=== PATIENT | female | born 2000 | race Caucasian/White ===

== ENCOUNTER 2021-02-05 18:14 | Emergency (ER) | payer OTHER ==
[~2021-02-05] VITALS: Ht 152.4 cm; Wt 47.7 kg
--- NOTE | 2021-02-05 18:48 | ED Integumentary General ---
General Chief Complaint: Bite-Animal/Human/Insect Stated Complaint: INSECT BITE/REDNESS/PAIN Nursing Triage Note: AMB TO ROOM REPORTS APX 1800 WAS BITTEN ON L FOREARM AREA RED WITH WELT LOOKING AREA. DID NOT TRY OTC MEDS. Source: patient Exam Limitations: no limitations History of Present Illness Date Seen by Provider: Feb 05, 2021 Time Seen by Provider: 18:46 Initial Comments To ER with an insect bite to the left forearm. She had picked up her jacket and felt something bite her. She now has redness and a bump to that area. Timing/Duration: just prior to arrival Severity: mild Possible Cause: no cause identified Associated Symptoms: denies symptoms Allergies and Home Medications Patient Home Medication List Home Medication List Reviewed: Yes Review of Systems Review of Systems Constitutional: see HPI EENTM: see HPI Respiratory: no symptoms reported Cardiovascular: no symptoms reported Genitourinary: no symptoms reported Musculoskeletal: no symptoms reported Skin: see HPI Psychiatric/Neurological: No Symptoms Reported Past Sxvwtsp-Fqzbpm-Vcldew Hx Patient Social History Tobacco Use?: No Substance use?: No Pt feels they are or have been: No Physical Exam Vital Signs Vital Signs - First Documented 02/05/21 18:29 Pulse 76 Resp 18 B/P (MAP) 112/76 (88) Pulse Ox 96 Capillary Refill : Less Than 3 Seconds General Appearance: WD/WN, no apparent distress HEENT: PERRL/EOMI, normal ENT inspection Respiratory: no respiratory distress, no accessory muscle use Neurologic/Psychiatric: alert, normal mood/affect, oriented x 3 Skin: normal color, warm/dry Skin Problem Location: upper extremities Skin Problem Character: other (To the volar aspect of the right forearm is a silver dollar sized area of erythema with a central papule. No bleeding.) Progress/Results/Core Measures Results/Orders Vital Signs/I&O 02/05/21 18:29 Pulse 76 Resp 18 B/P (MAP) 112/76 (88) Pulse Ox 96 Blood Pressure Mean: 88 Departure Communication (Admissions) She has a picture of the insect that bit her, this is a wheel bug. Impression Primary Impression: Insect bites Disposition: HOME, SELF-CARE Condition: Stable Departure-Patient Inst. Decision time for Depature: 18:47 Referrals: [facility] (PCP/Family) Primary Care Physician Patient Instructions: Insect Bites and Stings (DC) Add. Discharge Instructions: 1. Ice pack to the area to help with pain. Tylenol and Motrin can be used as well. Apply the topical steroid twice a day for about 3 days. Return to ER for any worsening. The insect that bit you is called a Wheel Bug. All discharge instructions reviewed with patient and/or family. Voiced understanding. SANZA REDDY APRN Feb 05, 2021 18:48
[2021-02-05] MEDS ORDERED: HYDROCORTISONE 1% CREAM 30 GM TUBE TOP SCH ×2 (19:15→21:00)
[2021-02-05 19:33] VITALS: BP 112/76
== END 2021-02-05 19:34 | disposition home or self-care (01) ==
LOC: ER 18:17
DX: S50.862A Insect bite (nonvenomous) of left forearm, initial encounter (principal); W57.XXXA Bitten or stung by nonvenomous insect and other nonvenomous arthropods, initial encounter